=== PATIENT | female | born 1970 | race Caucasian/White ===

== ENCOUNTER → 2020-01-23 14:37 | Outpatient (CLI) | payer OTHER, SELFPAY ==
[2019-07-29 10:24] VITALS: BMI 24.3
--- NOTE | 2020-01-23 14:45 | RAD_ITS ---
STUDY: X-RAY - LEFT FOOT CLINICAL: Female, 49 years old. Pain x 1 week, unsure of injury, distal portion of 4th and 5th metatarsals TECHNIQUE: 3 view(s) of the foot. COMPARISON: None. FINDINGS: There is a plantar calcaneal spur. There are degenerative changes of the midfoot. Normal metatarsi. There is degenerative arthrosis of the metatarsophalangeal joint of the hallux . Normal tibial and fibular sesamoid bones. Normal interphalangeal joint of the great toe. Normal phalanges of the great toe. Normal second through fifth metatarsophalangeal joints. There are mild degenerative changes of the interphalangeal joints of the lesser toes. The soft tissue structures are unremarkable. RAD/Foot min 3 Views IMPRESSION: Degenerative changes. Electronically Signed: Mikayla Frost MD at 16:54 EDT Tel , Service support ,
== END ==
PROVIDERS: PCP Family Medicine; Referring Provider Family Medicine; Visit Provider Family Medicine
DX: M79.672 Pain in left foot (principal)
CPT/HCPCS: 73630

== ENCOUNTER → 2020-12-23 15:19 | Outpatient (CLI) | payer OTHER, SELFPAY ==
[2019-07-29 10:24] VITALS: BMI 24.3
== END ==
PROVIDERS: PCP Family Medicine; Visit Provider Family Medicine
DX: Z20.828 Contact with and (suspected) exposure to other viral communicable diseases (principal)
CPT/HCPCS: 87635; U0002

== ENCOUNTER → 2021-06-28 16:21 | Outpatient (CLI) | payer OTHER, SELFPAY | PROVIDERS: PCP Family Medicine; Visit Provider Family Medicine | DX: Z20.828 Contact with and (suspected) exposure to other viral communicable diseases (principal) | CPT/HCPCS: 87635; U0005; U0003 ==

== ENCOUNTER → 2022-03-30 | Outpatient (CLI) | payer OTHER, SELFPAY ==
[2022-03-30 08:59] LABS: Erythrocyte Sedimentation Rate 10 mm/hr (0-30)
[2022-03-30 09:01] LABS: Absolute Lymphocyte Count 1.88 X10^3/uL (0.83-4.51); Absolute Neutrophil Count 3.1 X10^3/uL (2.0-7.7); Basophil# 0.04 X10^3/uL; Basophil% 0.7 % (0-1); Eosinophil# 0.22 X10^3/uL; Eosinophils% 3.9 % (0-5); Hematocrit 45.6 % (37-47); Hemoglobin 14.6 g/dL (12.0-15.0); Lymphocyte # 1.88 X10^3/ul (0.83-4.51); Lymphocyte % 33.2 % (19-41); Mean Corpuscular Hgb 27.4 pg (27.0-32.0); Mean Corpuscular Volume 85.6 fL (81-99); Mean Platelet Vol. 9.2 fl (6.2-12.0); Monocyte# 0.41 X10^3/uL; Monocyte% 7.2 % (0-10); NRBC Flagged by Analyzer 0 % (0-5); Neutrophil # 3.09 X10^3/uL (2.7-7.7); Neutrophil % 54.6 % (47-70); Platelet Count 353 K/mm3 (150-450); RBC Distribution Width CV 13.3 % (11.6-14.6); RBC Distribution Width SD 41.7 fl (35.1-43.9); Red Blood Count 5.33 M/mm3 (4.2-5.4); White Blood Count 5.7 K/mm3 (4.4-11.0)
[2022-03-30 09:24] LABS: Progesterone Level 0.29 ng/mL (See Comment)
[2022-03-30 09:29] LABS: AST(SGOT) 12 U/L (15-37); Alanine Aminotransfer ALT/SGPT 22 U/L (13-56); Albumin, Serum 3.5 g/dL (3.2-5.0); Alkaline Phosphatase 100 U/L (45-117); Anion Gap 4 (5-15); BUN 16 mg/dL (7-18); BUN/Creat Ratio 19.6 RATIO (10-20); CRP < 2.90 mg/L (0.0-3.0); Calcium,Total 8.9 mg/dL (8.5-10.1); Chloride 108 mmol/L (98-107); Creatinine, Serum 0.82 mg/dL (0.55-1.02); EST Glomerular Filtration Rate 79 mL/min (>60); Est Glom Filt Rate - Afr Amer 96 mL/min (>60); Estradiol < 11.0 pg/mL; Globulin 3.6 g/dL (2.2-4.2); Glucose 120 mg/dL (74-106); Potassium 4.2 mmol/L (3.5-5.1); Protein, Total 7.1 g/dL (6.4-8.2); Sodium Level 140 mmol/L (136-145); Thyroid Stim Hormone (TSH) 2.07 uIU/mL (0.358-3.74); Uric Acid 4.4 mg/dL (2.6-6.0)
== END | disposition home or self-care (01) ==
LOC: LAB 08:30
PROVIDERS: PCP Family Medicine; Visit Provider Family Medicine
DX: B34.9 Viral infection, unspecified (principal); M25.50 Pain in unspecified joint; L50.9 Urticaria, unspecified; N92.0 Excessive and frequent menstruation with regular cycle
CPT/HCPCS: 36415; 80053; 82670; 84144; 84443; 84481; 84550; 85025; 85652; 86140

== ENCOUNTER → 2023-08-30 | Outpatient (CLI) | payer OTHER, SELFPAY ==
--- NOTE | 2023-08-30 06:32 | MRI_ITS ---
STUDY: MRI LEFT FOREFOOT WITH AND WITHOUT CONTRAST REASON FOR EXAM: Female, 52 years old. Attention fourth metatarsal head, neoplasm of bone. TECHNIQUE: Standardized fat and water weighted pulse sequences were obtained in all 3 orthogonal planes, post contrast administration. IV 14 mL Clariscan was administered for the contrast portion of the examination. COMPARISON: Left foot radiographs dated 08/09/2023. FINDINGS: There are erosions in the fourth metatarsal head/neck with associated marrow edema. There is a moderate fourth MTP joint effusion containing internal debris/synovitis. Following IV contrast administration, there is synovial enhancement compatible with hyperemia/inflammation. There is focal subcortical edema/cyst formation along the medial aspect of the first metatarsal head (axial STIR series 8 images 22-23). There is minimal marrow stress edema in the tibial hallux sesamoid (axial STIR series 8 images 21-22). Normal bone marrow of the remainder of the metatarsals, phalanges and visualized distal tarsal row, without fracture, periostitis, or reactive bone edema. There are no extraarticular fluid collections. Normal visualized Chopart and Lisfranc joints and normal Lisfranc ligament. Normal intermetatarsal spaces without intermetatarsal (Barbour) neuroma or bursitis. Normal visualized distal anterior tibialis tendon. Normal visualized distal peroneus longus and brevis tendons. Normal visualized extensor digitorum longus, extensor hallucis longus, flexor digitorum brevis and flexor hallucis longus tendons. Normal visualized plantar fascia without fasciitis, fibromatosis or tear. Normal intrinsic muscles of the foot, without soft tissue masses or evidence of denervation atrophy. Normal dorsal and plantar subcutis adipose space. 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 Moderate fourth MTP joint effusion containing internal debris/synovitis. Fine-needle aspiration of the fourth MTP joint would be beneficial in assessing for active infection. Focal subcortical edema/cyst formation along the medial aspect of the first metatarsal head. Minimal marrow stress edema in the tibial hallux sesamoid. Electronically Signed: Pranav Dan MD at 9:52 EST ,
== END | disposition home or self-care (01) ==
PROVIDERS: PCP Family Medicine; Referring Provider Podiatrist; Visit Provider Podiatrist
DX: D49.2 Neoplasm of unspecified behavior of bone, soft tissue, and skin (principal)
CPT/HCPCS: 73720; A9575

== ENCOUNTER → 2023-09-05 | Outpatient (CLI) | payer OTHER, SELFPAY | END | disposition home or self-care (01) | LOC: LABSPEC 15:21 | PROVIDERS: PCP Family Medicine; Referring Provider Podiatrist; Visit Provider Podiatrist | DX: D49.9 Neoplasm of unspecified behavior of unspecified site (principal) | CPT/HCPCS: 87070; 87075; 87205 ==

== ENCOUNTER → 2023-10-24 | Outpatient (CLI) | payer OTHER, SELFPAY ==
[2023-10-24 15:56] LABS: Absolute Lymphocyte Count 2.17 X10^3/uL (0.83-4.51); Absolute Neutrophil Count 4.3 X10^3/uL (2.0-7.7); Basophil# 0.05 X10^3/uL; Basophil% 0.7 % (0-1); Eosinophil# 0.09 X10^3/uL; Eosinophils% 1.2 % (0-5); Hematocrit 42.7 % (37-47); Hemoglobin 13.4 g/dL (12.0-15.0); Lymphocyte # 2.17 X10^3/ul (0.83-4.51); Mean Corp Hgb Conc 31.4 g/dL (32-36); Mean Corpuscular Hgb 26.7 pg (27.0-32.0); Mean Corpuscular Volume 85.1 fL (81-99); Mean Platelet Vol. 9.1 fl (6.2-12.0); Monocyte# 0.65 X10^3/uL; NRBC Flagged by Analyzer 0 % (0-5); Neutrophil # 4.27 X10^3/uL (2.7-7.7); Platelet Count 512 K/mm3 (150-450); RBC Distribution Width CV 13.2 % (11.6-14.6); Red Blood Count 5.02 M/mm3 (4.2-5.4); White Blood Count 7.2 K/mm3 (4.4-11.0)
[2023-10-24 16:44] LABS: AST(SGOT) 15 U/L (15-37); Alanine Aminotransfer ALT/SGPT 20 U/L (13-56); Albumin, Serum 3.7 g/dL (3.2-5.0); Alkaline Phosphatase 116 U/L (45-117); Anion Gap 8 (5-15); BUN 12 mg/dL (7-18); Calcium,Total 9.1 mg/dL (8.5-10.1); Chloride 110 mmol/L (98-107); Creatinine, Serum 0.63 mg/dL (0.55-1.02); EST Glomerular Filtration Rate 106 mL/min (>60); Est Glom Filt Rate - Afr Amer 128 mL/min (>60); Globulin 3.6 g/dL (2.2-4.2); Glucose 74 mg/dL (74-106); Potassium 3.8 mmol/L (3.5-5.1); Protein, Total 7.3 g/dL (6.4-8.2); Sodium Level 141 mmol/L (136-145)
== END | disposition home or self-care (01) ==
LOC: BFHLAB 13:54
PROVIDERS: PCP Nurse Practitioner Family; Visit Provider Nurse Practitioner Family
DX: M79.675 Pain in left toe(s) (principal)
CPT/HCPCS: 36415; 80053; 85025

== ENCOUNTER 2023-11-10 11:50 | Day surgery (SDC) | payer OTHER, SELFPAY ==
[2023-11-10 12:21] VITALS: BP 137/91; PULSE 94; RESP 16; TEMP 36.7; O2SAT 99; BMI 24.6
[2023-11-10] MEDS: Lactated Ringers 1,000 ML 15 ML IV (12:25)
--- NOTE | 2023-11-10 13:30 | BON_PTH ---
PATHOLOGY RESULTS PATIENT: RAMANA JETER LOC: [facility] [place] U#:[id number] AGE/SX: 53/F ROOM: RE11/10/[address]: Dr. Lilliana Shepherd DPM : 1970 BED: DIS: 11/10/2023 SPEC #: [id number] RECD: 11/13/23 07:25 STATUS: JEFFRY ELAINA #: [id number] IZABELA: 11/10/23 13:[address]: Lilliana Shepherd DEPT: SURGICAL PATHOLOGY RECD BY: Maryan Goodwin ENTERED: 11/13/23 07:26 SP TYPE: Bone Tissues: Toe, NOS Procedures: Decalcification bone/plaque Surgery Specimen Level V HEADER OPERATION: Bone biopsy fourth metatarsal head PRE-OP DIAGNOSIS: Fourth metatarsal bone tumor TISSUE SUBMITTED: Fourth metatarsal head MICROSCOPIC DIAGNOSIS Fourth metatarsal head, bone biopsy: Reparative and reactive change. AM:david 11/15/2023 MICROSCOPIC DESCRIPTION Slides are reviewed. GROSS DESCRIPTION Received in fixative is one container labeled with the patient's name and designated fourth metatarsal head. The specimen consists of a piece of blackburn-white bone measuring 0.9 x 0.5 x 0.2 cm. The entire specimen is submitted in one cassette after decalcification. / SJ:david 11/13/2023 TC:5 CPT: 58559, 10453
[2023-11-10] MEDS: Cefazolin 2 GM in 0.9% Normal Saline (100mL Bag) 100 ML IV (13:42)
[2023-11-10] MEDS: Bupivacaine Mpf 0.5% 30 ML VIAL (13:58)
[2023-11-10 14:37] VITALS: BP 117/72; BP 137/91; PULSE 89; RESP 16; TEMP 36.6; O2SAT 100
[2023-11-10 14:40] VITALS: BP 118/80; BP 137/91; PULSE 90; RESP 16; O2SAT 99
[2023-11-10 14:46] VITALS: BP 127/85; BP 137/91; PULSE 80; RESP 16; O2SAT 99
--- NOTE | 2023-11-10 14:52 | OP.PCM_ITS ---
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 No rhoda purulence. Scar tissue surrounding joint. Surgeon: Lilliana Shepherd maintenance mechanic millwright: None Type of Anesthesia: MAC/Supplemental (10 cc's .5% bupicivaine plain to left 4th and 3rd metatarsal space) Anesthesiologist: Rafia Valladares Specimen's removed: bone, 4th metatarsal head Drains: none Estimated Blood Loss (mL): minimal Description of Procedure: The patient was brought to the OR and placed on the operating table in supine position under mild sedation. Pneumatic ankle tourniquet was placed about the patient's left ankle and following IV sedation the foot was scrubbed, prepped, and draped in the usual aseptic manner. The foot was then elevated to exsanguinate the limb and the pneumatic ankle tourniquet was inflated to 250 mmHg. Attention was directed to the dorsal left fourth metatarsal head where approximately 3 cm linear longitudinal incision was made. Immediately there was noted to be some thick fibrous scar tissue surrounding the head of the first metatarsal but no rhoda purulence. Next, medial to the extensor digitorum longus tendon, a linear longitudinal capsulotomy was performed. Immediately there was a significant amount of thin, watery, yellow-tinged fluid. Cultures were taken. No malodor. The incision was then carried down to the head of the fourth metatarsal and radiographs were suspicious for the medial aspect of this head with irregular appearance of the matrix. Utilizing a sagittal saw, the medial aspect of the fourth metatarsal head was removed will be sent to pathology for evaluation as well as microbiology for evaluation. The metatarsal heads do not appear to have significant pathology and there was no purulence within it. Approximately 4 mm wide specimen was taken. The wound was flushed with copious amounts of normal sterile saline. The deep structures were reapproximated and coapted utilizing 4-0 Vicryl sutures. Subcutaneous tissue was reapproximated and coapted utilizing 4-0 Vicryl sutures and skin was reapproximated and coapted utilizing 4-0 Monocryl sutures. Upon completion of the procedure, Cavilon was utilized and Steri-Strips were applied to reinforce the incision. A sterile compressive dressing consisting of Xeroform, 4 x 4's, Dede, Kerlix was applied. The pneumatic ankle tourniquet was deflated and a prompt hyperemic response was noted to all digits of the left foot. An Micah wrap was then applied. The patient tolerated the procedure and anesthesia well. She was transferred to the recovery room with vital signs stable and vascular status intact all toes of the left foot. Following period of postoperative monitoring, she will be discharged home with written and oral postoperative instructions. She is to keep her dressing clean, dry, intact. Avoid excessive ambulation. Rest, ice to the dorsal foot, and elevate. Wear surgical shoe at all times while ambulating. Contact Dr. Reyes for all postoperative follow-up care and if any problems arise. Pain prescription was E scribed. Grafts/Implants Used: none Complications none Admit VTE Documentation VTE Pharm Prophylaxis ordered?: No Reason prophylaxis not ordered:: Treatment Not Indicated
[2023-11-10 14:53] VITALS: BP 122/81; BP 137/91; PULSE 84; RESP 16; TEMP 37.1; O2SAT 99
--- OUTSIDE RECORDS SUMMARY | 2023-11-10 15:06 | XMS RPT_ITS | CCD ---
Author Name Unknown Address [facility] [place] [address] Organization [facility] Care Team Providers Care Acupuncturist Name Role Phone Samy Reed Primary Care Provider SELF Referring Unavailable SAMY REED Primary Care Unavailable LENY ROSS Referring Unavailable SAMY REED Primary Care Unavailable Pcp LABORER CARPENTRY DOCK, No Primary Care Provider Unavailabl e Pcp LABOR[employer] DOCK, No Primary Care Provider Unavailabl e Allergies Allergy Classification Reported Allergen(s) Allergy Type Date of Onset Reaction(s) Facility (5 sources) Environmental allergies [Other] Propensity to adverse reactions [address] [place] [address] (1 source) OTHER; Translations: [OTHER] Propensity to adverse reactions (disorder) 9 [facility] Repository Medications Completed/Discontinued Medications Medication Drug Class(es) Dates Sig (Normalized) Sig (Original) Acetaminophen (1 source) ACETAMINOPHEN (T YLENOL EXTRA STRENGTH ORAL) Take by mouth. 0 Active Problems Problem Classification Problem Date Documented Da te Episodic/Chronic Other upper respiratory disease (5 sources) Allergic rhinitis; Translations: [Allergic rhinitis, unspecified] Onset: 07-02-2009 07-02-2009 Chronic Residual codes; unclassified (1 source) Pain; Translations: [Pain, unspecified] Episodic Residual codes; unclassified (1 source) Pain, unspecified; Translations: [Pain] Onset: 04-10-2023 Episodic Results Test Name Value Interpretation Reference Range Facil ity Vital Signs Date Time Vital Sign Value Performing Clinician Alma litmoi 04-10-2023 16:45-0400 Body temperature 97.81 [degF] Leny Ross LAB[employer] D[employer].PRODUCT SAFETY OFFICER Work Phone: [facility] 04-10-2023 16:45-0400 Body weight 66.59 kg Leny Ross APRN.PRODUCT SAFETY OFFICER Work Phone: [facility] 04-10-2023 16:45-0400 Diastolic blood pressure 92 mm[Hg] Leny Ross APRN.PRODUCT SAFETY OFFICER Work Phone: [facility] 04-10-2023 16:45-0400 Heart rate 116 /min Leny Ross APRN.PRODUCT SAFETY OFFICER Work Phone: [facility] 04-10-2023 16:45-0400 Respiratory rate 18 /min Leny Ross APRN.PRODUCT SAFETY OFFICER Work Phone: [facility] 04-10-2023 16:45-0400 SaO2% (BldA) [Mass fraction] 96 % Leny Ross APRN.PRODUCT SAFETY OFFICER Work Phone: [facility] 04-10-2023 16:45-0400 Systolic blood pressure 128 mm[Hg] Leny Ross APRN.PRODUCT SAFETY OFFICER Work Phone: [facility] Encounters Encounter Date Encounter Type Care Provider Facility Start: 04-10-2023 End: 04-10-2023 ambulatory SELF Facility:[facility] Start: 04-10-2023 End: 04-10-2023 Patient encounter procedure Leny Ross APRN.PRODUCT SAFETY OFFICER Work Phone: [facility] Procedures Date Procedure Procedure Detail Performing Clinician Start: 11-17-2008 CYTOLOGY FRANCHISE BUSINESS CONSULTANT, CONVERTED Carlin Green MD Work Phone: Start: 10-21-2008 SURGICAL PATHOLOGY, CONVERTED Kai Caballero MD Work Phone: Start: 06-23-2008 SURGICAL PATHOLOGY, CONVERTED Carlin Green MD Work Phone: Start: 02-28-2007 SURGICAL PATHOLOGY, CONVERTED Carlin Green MD Work Phone: Plan of Treatment Date Care Activity Detail Author Start: 06-09-2023 Influenza vaccination C [facility] Start: 2022 SHINGRIX VACCINE (1 of 2) SHINGRIX V ACCINE (1 of 2) [facility] Start: 10-09-2022 DEPRESSION ASSESSMENT DEPRESSION ASS ESSMENT [facility] Start: 08-22-2021 COVID-19 VACCINE (2 - Booster for Moderna series) COVID-19 VACCINE (2 - Booster for Moderna series) [facility] Start: 08-22-2021 Covid-19 Vaccine (2 - Moderna series) Covid-19 Vaccine (2 - Moderna series) [facility] Start: 2017 COLOGUARD (FIT-DNA) COLOGUARD (FIT-D NA) [facility] Start: 2017 Colonoscopy COLONOSCOPY [facility] Start: 2017 COLORECTAL CANCER SCREENING COLORECTAL CANCER SCREENING [facility] Start: [address] COLONOGRAPHY [facility] Start: 2017 [facility] Start: 2017 Diabetes Screening Diabetes Screenin g [facility] Start: 2017 FECAL OCCULT BLOOD FECAL OCCULT BLOO D [facility] Start: 2017 Lipid 1996 panel - S jordon or Plasma Lipid Screening [facility] Start: 2017 LIPID SCREEN LIPID SCREEN [facility] Start: 2017 SIGMOIDOSCOPY SIGMOIDOSCOPY [facility] Start: 2012 Mammography [facility] Start: 2002 HPV TESTING HPV TESTING [facility] Start: 1993 PAP TESTING PAP TESTING [facility] Start: 1991 Urine microalbumin profile [facility] Start: 1990 HEPATITIS C SCREENING HEPATITIS C SC REENING [facility] Start: 1990 HIV SCREENING HIV SCREENING [facility] Start: 1972 HEPATITIS B (1 of 3 - 3-dose series) HEPATITIS B (1 of 3 - 3-dose series) [facility] Start: 1972 Hepatitis B Vaccine (1 of 3 - 3-dose series) Hepatitis B Vaccine (1 of 3 - 3-dose series) [facility] Payers Date Payer Category Payer Private Health Insurance [employer] A ETNA CHOICE POS II [id number] 2021-Present [phone] [address] [place] [address] POS [id number] 2021 Private Health Insurance [id number] Social History Date Type Detail Facility Start: 04-10-2023 Tobacco smoking stat [facility] Never smoked tobacco [facility] Start: 04-10-2023 Tobacco use and exposure Smokeless t obacco non-user [facility] Start: 04-10-2023 Alcohol intake Not Asked [facility] Start: 1972 Sex Assigned At Not on file C [facility] Tobacco smoking stat [facility] Tobacco smoking consumption unknown [facility] Start: 04-10-2023 History of Social function [facility] Start: 04-10-2023 Tobacco use panel [facility] Progress note 04-10-2023 Note Date & Type Note Facility 04-10-2023 Note HNO ID: [id number] Author: RT Lexy(R) Service: Radiology Author Type: Technologist Type: Progress Notes Filed: 04/10/2023 5:03 PM Note Text: Radiology Service Progress Note PATIENT NAME: Ramana Thomas DATE OF SERVICE: April 10, 2023 TIME: 4:52 PM PATIENT IDENTITY VERIFICATION COMPLETED USING TWO (2) IDENTIFIERS: Name and Date of confirmed by patient verbally. FALL SCREENING: Has the patient had 2 falls in the last year or 1 fall with injury or currently using an Ambulatory Assistive Device (Walker, Cane, Wheelchair, Crutches, etc.)? No PATIENT GENDER DATA: Female. status: : No status: NO. PATIENT RELEVANT IMPLANT DATA REVIEWED: Yes RADIOLOGY DEPARTMENT: General X-ray: Exam(s) Completed: Lower Extremity X-Ray(s): Ankle, Left and Foot, Left PERIPHERAL IV DATA: Not applicable SIGNED BY: RT Lexy(R) April 10, 2023 4:52 PM [facility] Progress note 04-10-2023 Note Date & Type Note Facility 04-10-2023 Note HNO ID: [id number] Author: Leny Ross APRN.PRODUCT SAFETY OFFICER Service: ? Author Type: Nurse Practitioner Type: Progress Notes Filed: 04/10/2023 5:37 PM Note Text: Subjective Patient came in with complaints of left foot and ankle pain. Patient says she twisted it somehow while falling. Patient says she can hardly perform range of motion to bear weight. Patient says she has some tingling but no loss of feeling. Patient says she has been trying to keep it immobile. Patient denies any other symptoms. The history is provided by the patient. No sign language teacher was used. Ankle Pain Review of Systems Constitutional: Negative. Skin: Negative. Objective Physical Exam Constitutional: Appearance: Normal appearance. Pulmonary: Effort: Pulmonary effort is normal. Musculoskeletal: Feet: Feet: Comments: Blue areas marked above represents pain when palpated or performing range of motion. Red area marked above represents mild to moderate edema and bruising. Neurological: Mental Status: She is alert. PAST MEDICAL HISTORY Diagnosis Date Allergic rhinitis Asthma PAST SURGICAL HISTORY Procedure Laterality Date DELIVERY ONLY 2000 LIG/TRNSXJ FLP TUBE ABDL/VAG APPR UNI/BI PAST SURGICAL HISTORY OF 1994,1999 Surgery for endometriosis x2 ALLERGIES Environmental Allergies [Other] MEDICATIONS venlafaxine ER (EFFEXOR XR) 37.5 mg 24 hr capsule atomoxetine (STRATTERA) 40 mg capsule Take 40 mg by mouth every morning. ACETAMINOPHEN (TYLENOL EXTRA STRENGTH ORAL) Take by mouth. (Patient not taking: Reported on 04/10/2023) ondansetron orally disintegrating (ZOFRAN ODT) 4 mg disintegrating tablet Take 1 tablet by mouth every 6 hours as needed for Nausea/Vomiting. (Patient not taking: Reported on 04/10/2023) No family history on file. Social History Tobacco Use Smoking status: Never Smokeless tobacco: Never ASSESSMENT/PLAN: 1. Pain - ICD9: 780.96, ICD10: R52 - XR ANKLE GENERAL 3V AP/LAT/OBL LEFT - XR FOOT GENERAL 3V AP/LAT/OBL LEFT * * * * Physician Interpretation * * * * EXAMINATION: XR FOOT 3V AP/LAT/OBL LT, XR ANKLE 3V AP/LAT/OBL LT CLINICAL HISTORY: Left ankle and left foot pain Technique: XR FOOT 3V AP/LAT/OBL LT, XR ANKLE 3V AP/LAT/OBL LT -- LEFT with 3 views on 3 images Comparison: None RESULT: No acute fracture or dislocation. Joint spaces are maintained. Plantar calcaneal spur. IMPRESSION IMPRESSION: No acute osseous abnormality Thread Checker: BAHMAN Transcribe Date/Time: Apr 10 2023 5:07P Dictated by : DANIELLE PANTOJA MD Patient was given crutches to rest left ankle. Patient's also was placed in an Micah wrap for comfort. Patient was instructed how to use both items properly. Patient will rest elevate ice for a week or 2. Patient will follow-up if signs and symptoms seem to be getting worse not better. Patient was okay with this care plan. Leny Ross APRN.YOLANDA [facility] History of Present illness Narrative 04-10-2023 Leyn Ross APRN.YOLANDA - 04/10/2023 4:52 PM EDT Note Date & Type Note Facility 04-10-2023 History of Presen t illness Narrative Images from the original note were not included. Subjective Patient came in with complaints of left foot and ankle pain. Patient says she twisted it somehow while falling. Patient says she can hardly perform range of motion to bear weight. Patient says she has some tingling but no loss of feeling. Patient says she has been trying to keep it immobile. Patient denies any other symptoms. The history is provided by the patient. No sign language teacher was used. Ankle Pain Review of Systems Constitutional: Negative. Skin: Negative. Objective Physical Exam Constitutional: Appearance: Normal appearance. Pulmonary: Effort: Pulmonary effort is normal. Musculoskeletal: Feet: Feet: Comments: Blue areas marked above represents pain when palpated or performing range of motion. Red area marked above represents mild to moderate edema and bruising. Neurological: Mental Status: She is alert. PAST MEDICAL HISTORY Diagnosis Date Allergic rhinitis Asthma PAST SURGICAL HISTORY Procedure Laterality Date DELIVERY ONLY 2000 LIG/TRNSXJ FLP TUBE ABDL/VAG APPR UNI/BI PAST SURGICAL HISTORY OF 1994,1999 Surgery for endometriosis x2 ALLERGIES Environmental Allergies [Other] MEDICATIONS venlafaxine ER (EFFEXOR XR) 37.5 mg 24 hr capsule atomoxetine (STRATTERA) 40 mg capsule Take 40 mg by mouth every morning. ACETAMINOPHEN (TYLENOL EXTRA STRENGTH ORAL) Take by mouth. (Patient not taking: Reported on 04/10/2023) ondansetron orally disintegrating (ZOFRAN ODT) 4 mg disintegrating tablet Take 1 tablet by mouth every 6 hours as needed for Nausea/Vomiting. (Patient not taking: Reported on 04/10/2023) No family history on file. Social History Tobacco Use Smoking status: Never Smokeless tobacco: Never ASSESSMENT/PLAN: 1. Pain - ICD9: 780.96, ICD10: R52 - XR ANKLE GENERAL 3V AP/LAT/OBL LEFT - XR FOOT GENERAL 3V AP/LAT/OBL LEFT * * * * Physician Interpretation * * * * EXAMINATION: XR FOOT 3V AP/LAT/OBL LT, XR ANKLE 3V AP/LAT/OBL LT CLINICAL HISTORY: Left ankle and left foot pain Technique: XR FOOT 3V AP/LAT/OBL LT, XR ANKLE 3V AP/LAT/OBL LT -- LEFT with 3 views on 3 images Comparison: None RESULT: No acute fracture or dislocation. Joint spaces are maintained. Plantar calcaneal spur. IMPRESSION IMPRESSION: No acute osseous abnormality Thread Checker: BAHMAN Transcribe Date/Time: Apr 10 2023 5:07P Dictated by : DANIELLE PANTOJA MD Patient was given crutches to rest left ankle. Patient's also was placed in an Micah wrap for comfort. Patient was instructed how to use both items properly. Patient will rest elevate ice for a week or 2. Patient will follow-up if signs and symptoms seem to be getting worse not better. Patient was okay with this care plan. Leny Ross APRN.PRODUCT SAFETY OFFICER documented in this encounter [facility] Evaluation note Note Date & Type Note Facility documented in this encounter [facility] Reason for referral (narrative) Diagnostic Procedure Only (Urgent) - Closed Note Date & Type Note Facility Referral ID Status Reason Start Date Expiration Date V isits Requested Visits Authorized [id number] Closed Auto-Generate d Referral 04/10/2023 05/09/2024 1 1 * Diagnostic Procedure Only (Urgent) - Closed Specialty Diagnoses / Procedures Referred By Contac t Referred To Contact XR IMAGING Diagnoses Pain Procedures XR ANKLE GENERAL 3V AP/LAT/OBL LEFT RADEX ANKLE COMPLETE MINIMUM 3 VIEWS Leny Ross APRN.PRODUCT SAFETY OFFICER [address] [place] [address] Xr Imaging Referral ID Status Reason Start Date Expiration Date V isits Requested Visits Authorized [id number] Closed Auto-Generate d Referral 04/10/2023 05/09/2024 1 1 [facility] Summary Purpose Family History No Family History Records Found Advance Directives No Advanced Directives Records Found Additional Source Comments Source Comments (unrecognize d section and content) In the event this informatio n is protected by the Federal Confidentiality of Alcohol and Drug Abuse Patient Records regulations: The Federal rules restrict any use of the information to criminally investigate or prosecute any alcohol or drug abuse patient.[facility] the event this information is protected by the Federal Confidentiality of Alcohol and Drug Abuse Patient Records regulations: The Federal rules restrict any use of the information to criminally investigate or prosecute any alcohol or drug abuse patient.[facility] the event this information is protected by the Federal Confidentiality of Alcohol and Drug Abuse Patient Records regulations: The Federal rules restrict any use of the information to criminally investigate or prosecute any alcohol or drug abuse patient.[facility] the event this information is protected by the Federal Confidentiality of Alcohol and Drug Abuse Patient Records regulations: The Federal rules restrict any use of the information to criminally investigate or prosecute any alcohol or drug abuse patient.[facility] the event this information is protected by the Federal Confidentiality of Alcohol and Drug Abuse Patient Records regulations: The Federal rules restrict any use of the information to criminally investigate or prosecute any alcohol or drug abuse patient.[facility] Reason for Visit (unrecogniz ed section and content) Care Teams (unrecognized sec tion and content) Acupuncturist Relationship Specialty Start Date End Date Pcp, No, LABORER [employer]PENTRY DOCK PCP - General 05/28/09 01/06/10 Pcp, No, LAB[employer]ER [employer] DOCK PCP - General 07/20/11 02/06/12 Samy Reed PCP - General Family Medicine 10/08/13 INFORMATION SOURCE (unrecogn ized section and content) FOR RECORDS PERTAINING TO PATIENTS WHO ARE OR HAVE BEEN ENROLLED IN A CHEMICAL DEPENDENCY/SUBSTANCEABUSE PROGRAM, SOME INFORMATION MAY BE OMITTED. This clinical summary was aggregated from multiple sources. Caution should be exercised in using it in the provision of clinical care. This summary normalizes information from multiple sources, and as a consequence, information in this document may materially change the coding, format and clinical context of patient data. In addition, data may be omitted in some cases. CLINICAL DECISIONS SHOULD BE BASED ON THE PRIMARY CLINICAL RECORDS. [facility]. provides no warranty or guarantee of the accuracy or completeness of information in this document.
[2023-11-10 15:20] VITALS: BP 137/91
== END 2023-11-10 15:27 | disposition home or self-care (01) ==
LOC: SDC 11:53 → AC 11:54
PROVIDERS: PCP Nurse Practitioner Family; Referring Provider Podiatrist; Visit Provider Podiatrist
PROC: (CPT 20240; principal; 2023-11-10 13:15)
DX: D49.2 Neoplasm of unspecified behavior of bone, soft tissue, and skin (principal); Z79.51 Long term (current) use of inhaled steroids; Z79.899 Other long term (current) drug therapy; Z86.16 Personal history of COVID-19; J45.909 Unspecified asthma, uncomplicated; F32.A Depression, unspecified; F41.9 Anxiety disorder, unspecified
CPT/HCPCS: 20240; 01480; 87015; 87070; 87075; 87077; 87102; 87116; 87176; 87184; 87186; 87205; 87206; 88305; 88307; 88311; J7120; J2405

== ENCOUNTER → 2023-12-28 | Outpatient (CLI) | payer OTHER, SELFPAY ==
[2023-12-28 09:44] LABS: Hemoglobin 13.8 g/dL (12.0-15.0); Mean Corp Hgb Conc 31.4 g/dL (32-36); Mean Corpuscular Hgb 27.1 pg (27.0-32.0); Mean Corpuscular Volume 86.4 fL (81-99); Mean Platelet Vol. 8.9 fl (6.2-12.0); Platelet Count 354 K/mm3 (150-450); RBC Distribution Width CV 13.7 % (11.6-14.6); RBC Distribution Width SD 43.6 fl (35.1-43.9); Red Blood Count 5.09 M/mm3 (4.2-5.4)
[2023-12-28 10:36] LABS: ALB/GLOB Ratio 0.9 RATIO (0.9-2.4); AST(SGOT) 17 U/L (15-37); Alanine Aminotransfer ALT/SGPT 20 U/L (13-56); Albumin, Serum 3.3 g/dL (3.2-5.0); Alkaline Phosphatase 97 U/L (45-117); Anion Gap 4 (5-15); BUN 13 mg/dL (7-18); BUN/Creat Ratio 16.8 RATIO (10-20); CRP < 2.90 mg/L (0.0-3.0); Calcium,Total 8.6 mg/dL (8.5-10.1); Chloride 106 mmol/L (98-107); Creatinine, Serum 0.77 mg/dL (0.55-1.02); EST Glomerular Filtration Rate 83 mL/min (>60); Est Glom Filt Rate - Afr Amer 101 mL/min (>60); Globulin 3.5 g/dL (2.2-4.2); Glucose 110 mg/dL (74-106); Potassium 4.4 mmol/L (3.5-5.1); Protein, Total 6.8 g/dL (6.4-8.2); Sodium Level 139 mmol/L (136-145)
== END | disposition home or self-care (01) ==
LOC: LAB 08:39
PROVIDERS: PCP Nurse Practitioner Family; Referring Provider Internal Medicine Infectious Disease; Visit Provider Internal Medicine Infectious Disease
DX: M86.9 Osteomyelitis, unspecified (principal)
CPT/HCPCS: 36415; 80053; 85027; 86140

== ENCOUNTER 2024-01-10 23:15 | Emergency (ER) | payer OTHER, SELFPAY ==
[2024-01-10 23:16] VITALS: BP 143/96; PULSE 124; RESP 16; TEMP 36.6; O2SAT 100; BMI 25.2
--- NOTE | 2024-01-10 23:24 | EKG12_ITS ---
Test Reason : CP Blood Pressure : / mmHG Vent. Rate : 119 BPM Atrial Rate : 119 BPM P-R Int : 136 ms QRS Dur : 090 ms QT Int : 342 ms P-R-T Axes : 051 045 049 degrees QTc Int : 481 ms Sinus tachycardia Otherwise normal ECG Confirmed by MORAIMA SÁNCHEZ, MARY ([id number]), television news video editor GERTRUDIS BEE ([id number]) on 01/12/2024 9:13:23 AM Referred By: RICHARD Confirmed By:MARY VALERA MD
--- NOTE | 2024-01-11 00:02 | RAD_ITS ---
EXAM: XR CHEST, 2 VIEWS CLINICAL INDICATION: chest pain TECHNIQUE: Frontal and lateral (3)views of the chest. COMPARISON: Previous chest radiographs of 10/28/2014. FINDINGS: LUNGS AND PLEURAL SPACES: Unremarkable. No consolidation or edema. No pneumothorax. No effusion. HEART: Unremarkable. Cardiac silhouette not enlarged. Normal pulmonary vasculature. MEDIASTINUM: Central airways and mediastinal contour are unremarkable. BONES/JOINTS: Thoracic degenerative spurring. No acute fracture. SOFT TISSUES: Unremarkable. RAD/Chest PA and Lateral IMPRESSION: No significant interval change. No radiographic evidence of acute cardiopulmonary disease. Electronically Signed: Monico Oneil MD at 1:47 EDT ,
[2024-01-11 00:16] VITALS: PULSE 96; RESP 18; O2SAT 100
[2024-01-11] MEDS: 0.9% Normal Saline (1000mL) 1,000 ML 999 ML IV (00:25)
[2024-01-11] MEDS: Ondansetron 4 MG/2 ML Vial IV (00:25)
[2024-01-11 00:27] LABS: D-Dimer Quantitative (DVT/PE) 0.35 FEU/ug/m (0.27-0.49)
[2024-01-11 00:33] LABS: Absolute Lymphocyte Count 5.37 X10^3/uL (0.83-4.51); Absolute Neutrophil Count 4.6 X10^3/uL (2.0-7.7); Basophil# 0.07 X10^3/uL; Basophil% 0.6 % (0-1); Eosinophil# 0.27 X10^3/uL; Eosinophils% 2.4 % (0-5); Hemoglobin 14.7 g/dL (12.0-15.0); Lymphocyte # 5.37 X10^3/ul (0.83-4.51); Lymphocyte % 46.8 % (19-41); Mean Corp Hgb Conc 33.4 g/dL (32-36); Mean Corpuscular Hgb 27.5 pg (27.0-32.0); Mean Corpuscular Volume 82.2 fL (81-99); Monocyte% 9.6 % (0-10); NRBC Flagged by Analyzer 0 % (0-5); Neutrophil # 4.61 X10^3/uL (2.7-7.7); Neutrophil % 40.1 % (47-70); POSITIVE DIFFERENTIAL YES; Platelet Count 485 K/mm3 (150-450); RBC Distribution Width CV 13.6 % (11.6-14.6); RBC Distribution Width SD 40.5 fl (35.1-43.9); Red Blood Count 5.35 M/mm3 (4.2-5.4); White Blood Count 11.5 K/mm3 (4.4-11.0)
[2024-01-11 00:37] LABS: Differential Indicated SCAN CRITERIA MET
[2024-01-11 00:50] LABS: AST(SGOT) 14 U/L (15-37); Alanine Aminotransfer ALT/SGPT 21 U/L (13-56); Albumin, Serum 3.8 g/dL (3.2-5.0); Alkaline Phosphatase 97 U/L (45-117); Anion Gap 10 (5-15); BUN 15 mg/dL (7-18); BUN/Creat Ratio 16.5 RATIO (10-20); Bilirubin, Direct 0.08 mg/dL (0.00-0.30); Calcium,Total 9.1 mg/dL (8.5-10.1); Chloride 106 mmol/L (98-107); Creatinine, Serum 0.91 mg/dL (0.55-1.02); EST Glomerular Filtration Rate 69 mL/min (>60); Est Glom Filt Rate - Afr Amer 84 mL/min (>60); Estimated Creatinine Clearance 71.21 ml/min; Globulin 3.5 g/dL (2.2-4.2); Glucose 98 mg/dL (74-106); Lipase 199 U/L (13-75); Magnesium 2.1 mg/dL (1.6-2.6); Potassium 2.7 mmol/L (3.5-5.1); Protein, Total 7.3 g/dL (6.4-8.2); Sodium Level 141 mmol/L (136-145); Troponin-I HS < 3 pg/mL (3.0-54.0)
--- NOTE | 2024-01-11 00:52 | CT_ITS ---
EXAM: CT ABDOMEN AND PELVIS WITH INTRAVENOUS CONTRAST CLINICAL INDICATION: ABD PAIN WITH ELEVATED LIPASE TECHNIQUE: Helically acquired images were obtained of the abdomen and pelvis with intravenous contrast. This CT exam was performed using one or more of the following dose reduction techniques: automated exposure control, adjustment of the mA and/or kV according to patient size, and/or use of iterative reconstruction technique. CONTRAST: IV 100mL [id number] RADIATION DOSE: Total DLP: 811.31 mGy-cm. COMPARISON: Limited abdominal ultrasound of 11/01/2017. FINDINGS: LOWER THORAX: Dependent atelectasis is incidentally noted bilaterally. No pleural effusion. No significant pericardial effusion. ABDOMEN: LIVER: Liver demonstrates minimal fatty infiltration. 9 mm ovoid hypodense focus noted within the inferior right hepatic lobe consistent with cavernous hemangioma as noted on ultrasound of 10/26. GALLBLADDER AND BILE DUCTS: Unremarkable. No calcified gallstones. No gallbladder distention or wall edema. No intra- or extrahepatic biliary ductal dilation. PANCREAS: Unremarkable. No focal cystic or solid mass. SPLEEN: Unremarkable. Normal size without focal cystic or solid mass. ADRENALS: Unremarkable. No nodules. KIDNEYS AND URETERS: Normal size kidneys with symmetric nephrograms. Mild fullness of both intrarenal collecting systems. Normal caliber ureters. No obstructing ureteral stone. No perirenal stranding. STOMACH AND BOWEL: No gastric mural thickening, periduodenal inflammatory changes or distended small bowel loops. Moderate amount of formed stool noted throughout the colon. Minimal colonic diverticulosis, without evidence for diverticulitis. PELVIS: APPENDIX: Normal. No evidence of acute appendicitis. BLADDER: Partially distended urinary bladder is unremarkable. REPRODUCTIVE: Atrophic uterus. No adnexal mass. ABDOMEN and PELVIS: INTRAPERITONEAL SPACE: Unremarkable. No ascites or other fluid collection. No free air. BONES/JOINTS: Lower thoracic degenerative spurring. Lumbar facet arthritis. No acute osseous abnormality. No suspicious lytic or blastic abnormality. SOFT TISSUES: Unremarkable. No discrete abdominal or pelvic wall hernia. VASCULATURE: Unremarkable. Abdominal aorta is non-dilated. LUZ MARINA and SMA enhance normally. LYMPH NODES: Scattered small nonspecific mesenteric lymph nodes. No enlarged lymph nodes. CT/Abdomen/Pelvis W IV Cont ONLY IMPRESSION: No acute findings in the abdomen or pelvis. No findings of pancreatitis are identified at this time; CT is often negative early in the course of acute pancreatitis, with CT findings of pancreatitis developing on more delayed scans. Electronically Signed: Monico Oneil MD at 2:18 EDT ,
[2024-01-11 01:00] VITALS: BP 142/89; PULSE 101; RESP 12; O2SAT 97
--- NOTE | 2024-01-11 01:40 | EDS_ITS ---
HPI History of Present Illness Chief Complaint: Chest Pain Informant: patient and spouse/S.O. Narrative Narrative: Patient is a 53-year-old female with past medical history of anxiety and asthma. She also recently was found to have osteomyelitis of her toe. She states she underwent a recent bone scraping secondary to this. She reports she was on IV antibiotics through PICC line for multiple weeks which finished roughly 1 week ago and now states she is on oral antibiotics. She states that she has had constant midsternal to right-sided chest discomfort for 2 days but this evening after walking on the treadmill had increased pain accompanied by nausea. She denies any diaphoresis shortness of breath or vomiting. She denies any family history of cardiac disease she denies any history of DVT/PE. However with her symptoms now worsening she presents for evaluation [facility] Medical History (Updated 01/11/24 @ 02:[address] Hugo Dunham DO) ADHD Alcohol use Anxiety and depression Arthritis Asthma Gastric reflux Migraine headache Non-smoker Post-menopausal Wears glasses Home Medications albuterol sulfate 90 mcg/actuation aerosol inhaler 1 puff inhalation Q2H PRN shortness of breath or wheezing #6.7 grams 07/29/19 [Rx Last Taken Unknown] atomoxetine 40 mg capsule 40 mg PO DAILY ADHD 11/01/23 [History Last Taken Un known] cholecalciferol (vitamin D3) 1,250 mcg (50,000 unit) capsule 1,250 mcg PO QWEEK 11/01/23 [History Last Taken Unknown] venlafaxine 37.5 mg capsule,extended release 24 hr 37.5 mg PO DAILY 11/01/23 [History Last Taken Unknown] terbinafine HCl 250 mg tablet 250 mg PO DAILY 01/10/24 [History Last Taken Unknown] ondansetron 4 mg disintegrating tablet 4 mg PO TID PRN nausea and vomiting #21 tabs 01/11/24 [Rx Last Taken Unknown] potassium chloride 10 mEq capsule,extended release 10 meq PO DAILY 7 days #7 caps 01/11/24 [Rx Last Taken Unknown] Allergy/AdvReac Type Severity Reaction Status Date / Time No Known Allergies Allergy Verified 01/10/24 23:17 Family History (Updated 01/11/24 @ 01:[address] Tiffanie Fonseca MD) Father Hypertension Mother Asthma Hypertension Surgical History (Updated 01/11/24 @ 01:[address] Tiffanie Fonseca MD) History of carpal tunnel release of both wrists History of endometrial ablation History of foot surgery Hx of tubal ligation Social History (Updated 01/11/24 @ 01:[address] Tiffanie Fonseca MD) household members: spouse and family Smoking Status: Never smoker alcohol intake: current alcohol intake frequency: a few times a month substance use type: does not use ROS ROS ED Constitutional Constitutional ED: Denies chills or fever(s) Eyes Eyes: Denies change in vision ENT ENT ED: Denies sore throat Cardiovascular Cardiovascular: Reports chest pain and racing heartbeat Respiratory/Chest Respiratory/Chest: Denies cough or dyspnea Gastrointestinal Gastrointestinal: Reports abdominal pain and nausea; Denies diarrhea or vomiting Genitourinary Genitourinary ED: Denies dysuria Musculoskeletal Musculoskeletal: Denies myalgias Integumentary Reports other Details: Wound left foot ; Denies rash Neurologic Neurologic: Denies headache(s) Hematologic/Lymphatic Hematologic/Lymphatic: Denies easy bleeding or easy bruising EXAM Physical Exam Const Vital Signs: 01/10/24 23:16 01/11/24 00:16 01/11/24 01:00 Temperature 97.8 F Temperature Source Temporal Pulse Rate 124 H 96 101 H Respiratory Rate 16 18 12 Blood Pressure 143/96 H 142/89 H Blood Pressure Mean 111 106 Pulse Ox 100 100 97 Oxygen Delivery Method Room Air Room Air Room Air 01/11/24 02:00 Temperature Temperature Source Pulse Rate 100 Respiratory Rate 14 Blood Pressure 149/96 H Blood Pressure Mean 113 Pulse Ox 98 Oxygen Delivery Method Room Air Positive well nourished and well developed General Appearance ED: well developed HEENT HEENT Narrative: Normocephalic atraumatic Mucous membranes are slightly dry and tacky without secondary changes to suggest infection No tongue or lip swelling no oral lesions no airway edema or compromise Eyes PERRL and EOMs intact bilaterally General Eye ED: Negative for pale conjunctiva or scleral icterus Neck supple Neck Narrative: No nuchal rigidity or meningeal signs Chest Wall Chest Narrative: Patient has reproducible midsternal to right anterior chest wall pain along the costal joints rib regions 4-6 that she states is the same pain she has been expe riencing. No bony deformity or crepitance Resp normal respiratory effort and clear to auscultation bilaterally Resp Narrative: No nasal flaring no retractions no tachypnea or accessory muscle use Cardio regular rhythm Rate: tachycardic and other Other Details: Tachycardic rate with regular rhythm No murmurs rubs or gallops noted Radial and carotid pulses are equal and symmetric GI normal to inspection, nondistended, normoactive bowel sounds and non-distended GI Narrative: Abdomen is soft and nondistended with normal active bowel sounds. There is mild pain with palpation in the midepigastric region without voluntary guarding or rigidity No pulsatile mass or fluid wave Negative Hickman sign Auscultation: normoactive bowel sounds Palpation: soft Back/Spine no CVA tenderness Extremity Extremity Narrative: No asymmetric edema no pitting edema negative Homans' sign bilaterally Neuro oriented x3, CN's II-XII intact bilaterally and no sensory deficits noted Sensorium / Orientation: alert Motor Exam: strength 5/5 throughout Psych mental status grossly normal Skin Skin Narrative: Postsurgical changes to the left foot consistent with recent surgical procedure for osteomyelitis MDM MDM MDM Narrative Medical decision making narrative: Patient arrived the ER hypertensive and tachycardic. She reported multiple days of constant chest pain that was reproducible in nature without trauma. She denied any history of DVT/PE but did have recent surgery. She also states that the pain seemed to move slightly into her abdomen. Differential diagnosis is for acute coronary syndrome versus pneumonia versus pneumothorax versus DVT/PE versus pancreatitis versus biliary colic versus acute cholecystitis. EKG was obtained which showed sinus tachycardia. A D-dimer was then added because of the concern for DVT/PE which is negative going against clot or dissection. Patient's lipase was elevated concerning for pancreatitis. Therefore a CT of the abdomen and pelvis with IV contrast was obtained. This revealed no acute findings within the abdomen or pelvis. The patient's troponin was less than 3 going against acute coronary syndrome. The patient's potassium was low at 2.7 but she does not have any type of neurologic or EKG changes associated with this so therefore was replaced orally. At this time as she has a negative cardiac workup and normal CT scan of the abdomen and pelvis going against intestinal pathology mainly pancreatitis with an elevated lipase I do not feel there is need to keep her. She can supplement her potassium orally and can follow-up on an outpatient basis with her family doctor for repeat evaluation History & Record Review Discussion w/independent historian: Patient and Significant other Lab Data Attestation: I reviewed the patient's lab results. Labs: Laboratory Results - last 24 hr 01/10/24 23:35 WBC 11.5 H RBC 5.35 Hgb 14.7 Hct 44.0 MCV 82.2 MCH 27.5 MCHC 33.4 RDW Std Deviation 40.5 RDW Coeff of Lupillo 13.6 Plt Count 485 H MPV 9.0 Immature Gran % (Auto) 0.500 Neut % (Auto) 40.1 L Lymph % (Auto) 46.8 H [place] % (Auto) 9.6 Eos % (Auto) 2.4 Baso % (Auto) 0.6 Absolute Neuts (auto) 4.6 Absolute Lymphs (auto) 5.37 H Nucleated RBC % 0 Differential Comment SCANNED D-Dimer Quant (PE/DVT) 0.35 Sodium 141 Potassium 2.7 L* Chloride 106 Carbon Dioxide 25.0 Anion Gap 10 BUN 15 Creatinine 0.91 Estim Creat Clear Calc 71.21 Est GFR (MDRD) Af Amer 84 Est GFR (MDRD) Non-Af 69 BUN/Creatinine Ratio 16.5 Glucose 98 Calcium 9.1 Magnesium 2.1 Total Bilirubin 0.30 Direct Bilirubin 0.08 AST 14 L ALT 21 Alkaline Phosphatase 97 Troponin I High Sens < 3 L Total Protein 7.3 Albumin 3.8 Globulin 3.5 Lipase 199 H Radiography Diagnostic Testing: Clinical Impression(s) from Imaging Studies Chest X-Ray 01/11/24 00:02 IMPRESSION: No significant interval change. No radiographic evidence of acute cardiopulmonary disease. Electronically Signed: Monico Oneil MD at 1:47 EDT , Abdomen/Pelvis CT 01/11/24 00:52 IMPRESSION: No acute findings in the abdomen or pelvis. No findings of pancreatitis are identified at this time; CT is often negative early in the course of acute pancreatitis, with CT findings of pancreatitis developing on more delayed scans. Electronically Signed: Monico Oneil MD at 2:18 EDT , Chest x-ray as interpreted by the emergency medicine physician reveals no acute infiltrate pneumothorax or pleural effusion Discharge Plan Triage Chief Complaint: Chest Pain ED Provider: Hugo Dunham Dx/Rx/DC Orders Clinical Impression: Nonspecific chest pain, Acute hypokalemia Instructions: Hypokalemia Dc, ED Chest Pain, Uncertain Cause Prescriptions: New ondansetron 4 mg tablet,disintegrating 4 mg PO TID PRN (Reason: nausea and vomiting) Qty: 21 0RF potassium chloride 10 mEq capsule, extended release 10 meq PO DAILY 7 Days Qty: 7 0RF No Action albuterol sulfate 90 mcg/actuation HFA aerosol inhaler 1 puff INHALATION Q2H PRN (Reason: shortness of breath or wheezing) Qty: 6.7 0RF atomoxetine 40 mg capsule 40 mg PO DAILY Patient Comments: TAKE 1 CAPSULE BY MOUTH EVERY DAY IN THE MORNING cholecalciferol (vitamin D3) 1,250 mcg (50,000 unit) capsule 1,250 mcg PO QWEEK Patient Comments: 1 TABLET BY MOUTH ONCE WEEKLY venlafaxine 37.5 mg capsule,extended release 24hr 37.5 mg PO DAILY Patient Comments: TAKE 1 CAPSULE BY MOUTH EVERY DAY IN THE MORNING terbinafine HCl 250 mg tablet 250 mg PO DAILY Primary Care Provider: Lary Helms Referrals: Lary Helms DO [Primary Care Provider] - Activity Restrictions/Additional Instructions: Please have your family doctor recheck your electrolytes once you finish your 7 days of potassium supplementation as you may need to be on the dose for a longer period of time. Return to the ER should you have any further concerns Disposition Disposition: Home, Self Care
[2024-01-11] MEDS: Potassium Chloride Oral Tablet 20 MEQ 40 MEQ PO (01:54)
[2024-01-11 02:00] VITALS: BP 149/96; PULSE 100; RESP 14; O2SAT 98
[2024-01-11 02:01] LABS: Differential Comment SCANNED
[2024-01-11 02:41] VITALS: BP 148/90; PULSE 98; RESP 18; TEMP 36.7; O2SAT 99
== END 2024-01-11 02:41 | disposition home or self-care (01) ==
PROVIDERS: Emergency Provider Emergency Medicine; PCP Family Medicine; Visit Provider Emergency Medicine
DX: R07.9 Chest pain, unspecified (principal); E87.6 Hypokalemia; F41.9 Anxiety disorder, unspecified; J45.909 Unspecified asthma, uncomplicated; F32.A Depression, unspecified; Z79.51 Long term (current) use of inhaled steroids; Z79.899 Other long term (current) drug therapy
CPT/HCPCS: 71046; 74177; 80048; 80076; 83690; 83735; 84484; 85025; 85379; 93005; 96361; 96374; 99282; J7030; Q9967; A4216; J2405

== ENCOUNTER → 2024-03-01 | Outpatient (CLI) | payer OTHER, SELFPAY | END | disposition home or self-care (01) | LOC: BFHLAB 14:10 | PROVIDERS: PCP Nurse Practitioner Family; Visit Provider Nurse Practitioner Family | DX: N39.0 Urinary tract infection, site not specified (principal) | CPT/HCPCS: 87077; 87086; 87088; 87186 ==

== ENCOUNTER 2024-12-22 10:26 | Emergency (ER) | payer OTHER, SELFPAY ==
[2024-12-22 10:26] VITALS: BP 144/96; PULSE 123; RESP 18; TEMP 36.6; O2SAT 99; BMI 25.2
--- NOTE | 2024-12-22 10:39 | EDS_ITS ---
HPI HPI - GI History of Present Illness Chief Complaint: Abd Pain Informant: patient and spouse/S.O. Abdominal Pain/Flank Pain Onset: Yesterday Context: Gradual Onset Timing: Continuous Quality: Cramping Location: RUQ Worsened by: - (Breathing in) Relieved by: - (Breathing out) Nausea/Vomiting/Emesis GI Symptom: Positive for Nausea; Negative for Vomiting Onset: Weeks (1) Diarrhea/Melena/Hematochezia GI Symptom: Negative for Diarrhea, Melena or Hematochezia Associated Symptoms Associated Symptoms: Positive for Dysuria and Frequency; Negative for Hematuria or Urgency Narrative Narrative: Patient presents with abdominal pain that began yesterday. Patient states that it has gradually gotten worse. Patient states it is constant. Patient describes it as cramping and squeezing. Patient states it is mainly over the right upper quadrant. Patient states it is worse when she breathes in and better when she breathes out. Patient admits to some nausea for the past week but denies any vomiting. Patient denies any diarrhea, melena, or hematochezia. Patient does admit to some dysuria and urinary frequency. Patient states she ate some orange cranberry bread this morning at 6:30. Patient states that she has been unable to get a refill of her Vyvanse because the pharmacy has been out of it. Patient states she has not had this in the past 8 days. [facility] Medical History Anxiety and depression Wears glasses Post-menopausal Alcohol use Arthritis ADHD Migraine headache Gastric reflux Non-smoker Asthma Home Medications ?Medication ?Instructions ?Recorded ?Last Taken ?Type albuterol sulfate 90 mcg/actuation 1 puff inhalation Q 2H PRN 07/29/19 Unknown Rx aerosol inhaler shortness of breath or wheez ing #6.7 grams atomoxetine 40 mg capsule 40 mg PO DAILY ADHD 11/01/23 Unknown History cholecalciferol (vitamin D3) 1,250 1,250 mcg PO QWEEK 11/01/23 Unknown History mcg (50,000 unit) capsule terbinafine HCl 250 mg tablet 250 mg PO DAILY 01/10/24 Unknown History ondansetron 4 mg disintegrating 4 mg PO TID PRN nausea and 01/11/24 Unknown Rx tablet vomiting #21 tabs hydrocodone-acetaminophen 5-325mg 1 tab PO Q6H PRN PRN Pain 3 days 12/22/24 Unknown Rx 5mg-325mg #10 TABLETS levofloxacin 500 mg tablet 500 mg PO DAILY #7 tabs Unknown Rx venlafaxine 75 mg capsule,extended 75 mg PO DAILY 12/07 04/02 Unknown History release 24 hr Allergy/AdvReac Type Severity Reaction Status Date / Time No Known Allergies Allergy Verified 01/10/24 23:17 Family History Father Hypertension Mother Asthma Hypertension Surgical History History of foot surgery Hx of tubal ligation History of endometrial ablation History of carpal tunnel release of both wrists Social History (Updated 12/22/24 @ 11:06 by Rosa Hightower) household members: spouse and family housing: house current occupational status: employed Smoking Status: Never smoker alcohol intake: current alcohol intake frequency: a few times a month substance use type: does not use ROS ROS ED Constitutional Constitutional ED: Reports chills, fever(s) and subjective Eyes Eyes: Denies blurry vision or change in vision ENT ENT ED: Denies rhinorrhea or sore throat Cardiovascular Cardiovascular: Denies chest pain or palpitations Respiratory/Chest Respiratory/Chest: Denies cough or dyspnea Gastrointestinal Gastrointestinal: Reports abdominal pain and nausea; Denies vomiting Genitourinary Genitourinary ED: Reports dysuria and urinary frequency; Denies hematuria Musculoskeletal Musculoskeletal: Reports neck pain; Denies back pain Integumentary Denies abscess or rash Neurologic Neurologic: Reports headache(s); Denies weakness Allergic/Immunologic Allergic/Immunologic ED: Denies mouth swelling or urticaria EXAM Physical Exam Const Vital Signs: 12/22/24 10:26 Temperature 97.9 F Temperature Source Oral Pulse Rate 123 H Respiratory Rate 18 Blood Pressure 144/96 H Blood Pressure Mean 112 Pulse Ox 99 Oxygen Delivery Method Room Air Positive well nourished and well developed Constitutional Narrative: BMI is 25.3. General Appearance ED: well developed and NAD HEENT Reports moist mucous membranes Neck supple and no JVD Resp normal respiratory effort and clear to auscultation bilaterally Cardio regular rhythm Rate: tachycardic GI non-distended Palpation: soft and tender RUQ; Negative for guarding or rebound tenderness present Neuro CN's II-XII intact bilaterally, moves all extremities and no sensory deficits noted Sensorium / Orientation: alert Motor Exam: strength 5/5 throughout Psych mental status grossly normal MDM MDM MDM Narrative Medical decision making narrative: Differential diagnosis includes cholecystitis, cholelithiasis, pancreatitis, colitis, gastroenteritis, peptic ulcer disease, duodenal ulcer, pyelonephritis, and urinary tract infection. CBC will be obtained to assess for leukocytosis and anemia. Comprehensive metabolic profile will be obtained to assess for hepatic function, renal function, and electrolyte abnormality. Lipase will be obtained to assess for pancreatitis. Urinalysis will be obtained to assess for urinary tract infection and hematuria. CT scan of the abdomen and pelvis will be obtained to assess for pyelonephritis, cholecystitis, cholelithiasis, and colitis. Lab Data Attestation: I reviewed the patient's lab results. Lab results narrative: CBC was reviewed and was within normal limits. Comprehensive metabolic profile was reviewed and was essentially within normal limits. Lipase was reviewed and was normal at 24. Urinalysis was reviewed. Leukocyte esterase was 500 with nitrates. Occult blood was 250. There were greater than 100 white blood cells and 50-100 red blood cells. There is 4+ bacteria. Labs: Laboratory Results - last 24 hr 12/22/24 11:08 WBC 10.9 RBC 4.91 Hgb 13.7 Hct 42.6 MCV 86.8 MCH 27.9 MCHC 32.2 RDW Std Deviation 42.5 RDW Coeff of Lupillo 13.5 Plt Count 285 MPV 8.9 Immature Gran % (Auto) 0.300 Neut % (Auto) 77.1 H Lymph % (Auto) 13.5 L [place] % (Auto) 7.7 Eos % (Auto) 0.9 Baso % (Auto) 0.5 Absolute Neuts (auto) 8.4 H Absolute Lymphs (auto) 1.47 Nucleated RBC % 0 Sodium 139 Potassium 4.2 Chloride 105 Carbon Dioxide 19.9 L Anion Gap 14 BUN 15 Creatinine 0.72 Estim Creat Clear Calc 87.07 Est GFR (MDRD) Non-Af 101 BUN/Creatinine Ratio 21.4 H Glucose 90 Calcium 9.3 Total Bilirubin 0.42 AST 22 ALT 20 Alkaline Phosphatase 118 H Total Protein 6.9 Albumin 4.0 Globulin 3.0 Albumin/Globulin Ratio 1.3 Lipase 24 Urine Color Yellow Urine Clarity Cloudy Urine pH 6.0 Ur Specific [place] 1.020 Urine Protein 100 H Urine Glucose (UA) Normal Urine Ketones Negative Urine Occult Blood 250 H Urine Nitrite Positive H Urine Bilirubin Negative Urine Urobilinogen Normal Ur Leukocyte Esterase 500 H Urine RBC 50-100 SEEN Urine WBC >100 SEEN Ur Squamous Epith Cells 0 SEEN Urine Bacteria 4+ Urine Mucus 0 SEEN Radiography Diagnostic Testing: Clinical Impression(s) from Imaging Studies Abdomen/Pelvis CT 12/22/24 10:47 IMPRESSION: Mild acute cystitis with imaging features suggestive of bilateral ascending ureteritis. No CT evidence of acute pyelonephritis. Please correlate. [facility] of the abdomen and pelvis was obtained. There is evidence of acute cystitis and suggestion of bilateral ascending ureteritis. There is no evidence of pyelonephritis. There is no evidence of bowel obstruction or perforation. There is no free air or free fluid. This was interpreted by the radiologist and was also independently reviewed by myself. Treatment and Re-Evaluation :: Patient was given IV fluids, morphine, and Zofran. Patient was given a dose of Rocephin. Urine culture was ordered. Patient was given a repeat dose of morphine. Patient was advised of her findings. Patient was given prescription for Levaquin, and Mena. Patient was instructed to follow-up with her primary care physician in 3 to 5 days. Patient was instructed to return if worse in any way. Patient understood and was agreeable with the plan. All questions were answered. Discharge Plan Triage Chief Complaint: Abd Pain ED Provider: Delano Wesley Dx/Rx/DC Orders Clinical Impression: Acute cystitis, Right flank pain Instructions: ED Cystitis Female Adult Prescriptions: New hydrocodone-acetaminophen 5-325 mg tablet 1 tab PO Q6H PRN PRN (Reason: Pain) 3 Days Qty: 10 0RF levofloxacin 500 mg tablet 500 mg PO DAILY Qty: 7 0RF No Action albuterol sulfate 90 mcg/actuation HFA aerosol inhaler 1 puff INHALATION Q2H PRN (Reason: shortness of breath or wheezing) Qty: 6.7 0RF atomoxetine 40 mg capsule 40 mg PO DAILY Patient Comments: TAKE 1 CAPSULE BY MOUTH EVERY DAY IN THE MORNING cholecalciferol (vitamin D3) 1,250 mcg (50,000 unit) capsule 1,250 mcg PO QWEEK Patient Comments: 1 TABLET BY MOUTH ONCE WEEKLY terbinafine HCl 250 mg tablet 250 mg PO DAILY ondansetron 4 mg tablet,disintegrating 4 mg PO TID PRN (Reason: nausea and vomiting) Qty: 21 0RF venlafaxine 75 mg capsule,extended release 24hr 75 mg PO DAILY Primary Care Provider: Lary Helms Referrals: Lary Helms DO [Primary Care Provider] - 3-5 Days Print Language: Amharic Disposition Disposition: Home, Self Care
--- NOTE | 2024-12-22 10:47 | CT_ITS ---
PROCEDURE: CT abdomen pelvis with IV contrast REASON FOR EXAM: Pain TECHNIQUE: Multiple contiguous axial images through the abdomen and pelvis were obtained after the administration of intravenous contrast. Two-dimensional coronal and sagittal reformatted images were reconstructed. Low-dose imaging technique was utilized. COMPARISON: January 11, 2024 FINDINGS: Lung bases are clear., spleen, pancreas and adrenal glands are intact. Gallbladder is satisfactory. No significant biliary ductal dilation. Kidneys enhance symmetrically. Mild generalized bilateral urothelial hyperenhancement of both renal collecting systems without obstructing calculi or significant hydronephrosis. Left peripelvic cysts. Mild diffuse bladder wall thickening with subtle perivesicular haziness. Distal colonic diverticulosis. No bowel obstruction, focal bowel wall thickening or significant perienteric inflammation. Normal appendix. No pelvic free fluid. No free air. No abdominal aortic aneurysm or suspicious adenopathy. Superficial soft tissues are within normal limits. No acute osseous abnormality. CT/Abdomen/Pelvis W IV Cont ONLY IMPRESSION: Mild acute cystitis with imaging features suggestive of bilateral ascending ure teritis. No CT evidence of acute pyelonephritis. Please correlate. Reading Location: [facility]
[2024-12-22] MEDS: 0.9% Normal Saline (1000mL) 1,000 ML 999 ML IV (11:13)
[2024-12-22] MEDS: Ondansetron 4 MG/2 ML Vial IV (11:13)
[2024-12-22] MEDS: Morphine 4 MG/ML Syringe IV ×2 (11:13→12:23)
[2024-12-22 11:17] LABS: Mucous, Urine 0 SEEN /hpf (<or=2+); Squamous Epithelial Cells - UA 0 SEEN /hpf (5-10)
[2024-12-22 11:18] LABS: Absolute Lymphocyte Count 1.47 X10^3/uL (0.83-4.51); Absolute Neutrophil Count 8.4 X10^3/uL (2.0-7.7); Basophil# 0.06 X10^3/uL; Basophil% 0.5 % (0-1); Eosinophils% 0.9 % (0-5); Hematocrit 42.6 % (37-47); Hemoglobin 13.7 g/dL (12.0-15.0); Lymphocyte # 1.47 X10^3/ul (0.83-4.51); Lymphocyte % 13.5 % (19-41); Mean Corp Hgb Conc 32.2 g/dL (32-36); Mean Corpuscular Hgb 27.9 pg (27.0-32.0); Mean Corpuscular Volume 86.8 fL (81-99); Mean Platelet Vol. 8.9 fl (6.2-12.0); Monocyte# 0.84 X10^3/uL; Monocyte% 7.7 % (0-10); NRBC Flagged by Analyzer 0 % (0-5); Neutrophil # 8.41 X10^3/uL (2.7-7.7); Neutrophil % 77.1 % (47-70); Platelet Count 285 K/mm3 (150-450); RBC Distribution Width CV 13.5 % (11.6-14.6); RBC Distribution Width SD 42.5 fl (35.1-43.9); Red Blood Count 4.91 M/mm3 (4.2-5.4); White Blood Count 10.9 K/mm3 (4.4-11.0)
[2024-12-22 11:20] LABS: Color, Urine Yellow (Yellow); Glucose, Dipstick Normal (Normal); Ketone-Dipstick Negative (Negative); Leukocyte Esterase-Dipstick 500 /ul (Negative); Nitrite-Dipstick Positive (Negative); Occult Blood-Urine 250 /ul (Negative); Protein-Dipstick 100 mg/dl (Negative); Urine Bilirubin Dipstick Negative (Negative); Urine Clarity Cloudy (Clear); Urine Urobilinogen Normal (Normal)
[2024-12-22 11:35] LABS: White Blood Cells >100 SEEN /hpf (0-5)
[2024-12-22 11:37] LABS: Red Blood Cells-Urine 50-100 SEEN /hpf (0-5)
[2024-12-22 11:39] LABS: Bacteria 4+ /hpf (None Seen)
[2024-12-22 11:58] LABS: ALB/GLOB Ratio 1.3 RATIO (0.9-2.4); AST(SGOT) 22 U/L (<=31); Alanine Aminotransfer ALT/SGPT 20 U/L (<=34); Alkaline Phosphatase 118 U/L (35-104); Anion Gap 14 (5-15); BUN 15 mg/dL (4-19); BUN/Creat Ratio 21.4 RATIO (10-20); Calcium,Total 9.3 mg/dL (7.6-11.0); Carbon Dioxide 19.9 mmol/L (21.0-32.0); Chloride 105 mmol/L (98-108); Creatinine, Serum 0.72 mg/dL (0.70-1.20); EST Glomerular Filtration Rate 101 (>60); Estimated Creatinine Clearance 87.07 ml/min (50-250); Glucose 90 mg/dL (70-99); Lipase 24 U/L (13-75); Potassium 4.2 mmol/L (3.3-5.1); Protein, Total 6.9 g/dL (5.9-8.4); Sodium Level 139 mmol/L (133-145); Total Bilirubin 0.42 mg/dL (0.00-1.30)
[2024-12-22] MEDS: Ceftriaxone 1 GM/50 ML BAG IV (12:14)
[2024-12-22 12:27] VITALS: BP 134/67; PULSE 102; RESP 14; TEMP 36.8; O2SAT 96
== END 2024-12-22 12:54 | disposition home or self-care (01) ==
PROVIDERS: Emergency Provider Emergency Medicine; PCP Family Medicine; Visit Provider Emergency Medicine
DX: N30.00 Acute cystitis without hematuria (principal); F90.9 Attention-deficit hyperactivity disorder, unspecified type; J45.909 Unspecified asthma, uncomplicated; Z79.899 Other long term (current) drug therapy
CPT/HCPCS: 74177; 80053; 81001; 83690; 85025; 87077; 87086; 87088; 87186; 96361; 96365; 96375; 96376; 99283; Q9967; A4216; J2405

== ENCOUNTER → 2025-05-08 | Outpatient (CLI) | payer OTHER, SELFPAY ==
--- NOTE | 2025-05-08 11:45 | RAD_ITS ---
PROCEDURE: WRIST MIN 3 VIEWS 05/08/2025 REASON FOR EXAM: PAIN TECHNIQUE: WRIST MIN 3 VIEWS COMPARISON: None. RAD/Wrist min 3 Views IMPRESSION: No significant ulnar variance is noted. Mild degenerative changes are seen of the 1st carpal-metacarpal and scaphoid tr apezial trapezoid joints. Satisfactory carpal alignment is seen. No fracture or dislocation is seen. Reading Location: [facility]
== END | disposition home or self-care (01) ==
LOC: MTRAD 11:43
PROVIDERS: PCP Family Medicine; Referring Provider Family Medicine; Visit Provider Family Medicine
DX: M25.532 Pain in left wrist (principal)
CPT/HCPCS: 73110